=== PATIENT | female | born 1985 | race Caucasian/White ===

== ENCOUNTER 2024-05-14 17:47 | Emergency (ER) | payer OTHER, SELFPAY ==
[2024-05-14 18:51] VITALS: BP 141/100; PULSE 85; RESP 18; TEMP 36.7; O2SAT 98; BMI 29.4
--- NOTE | 2024-05-14 18:53 | ED_ITS ---
HPI - Headache General Chief Complaint: Headache Stated Complaint: Back of head pressure Time Seen by Provider: 05/14/24 22:55 Source: patient Mode of arrival: ambulatory Limitations: no limitations History of Present Illness ED Provider: Dr. Sachi Pablo HPI Narrative: Patient comes to the emergency room complaining of a headache for over 24 hours. Patient states that she has been taking Tylenol without any relief. Patient has history of migraines but usually they are 1 side of the head. Patient denies photophobia. Patient denies any neurological deficits. In triage, patient states that she had some swelling in the face around the eyes legs, patient states that it is all gone now without any intervention or medication. Patient states that she ran out of her blood pressure medications 3 days ago, states that she is having trouble getting in to see her primary care physician due to high demand Related Data Previous Rx's ?Medication ?Instructions ?Recorded hydrochlorothiazide 25 mg tablet 25 mg PO DAILY #90 tabs 05/14/24 ketorolac 10 mg tablet 10 mg PO Q8H PRN pain #10 tabs 05/14/24 losartan 25 mg tablet 25 mg PO DAILY #90 tabs 05/14/24 metoclopramide HCl 5 mg tablet 5 mg PO .T.i.d. PRN nausea and 05/14/24 (Reglan) vomiting #10 tabs Allergies Allergy/AdvReac Type Severity Reaction Status Date / Time No Known Allergies Allergy Verified 05/14/24 18:54 Review of Systems 2 Review of Systems: Constitutional : No Weight loss, No Fever, No Chills, No Night Sweats, No Fatigue, No Malaise ENT/Mouth : No Hearing loss, No Ear Pain, No Nasal Congestion, No Sinus Pain, No Hoarseness, No sore throat, No Rhinorrhea, No Swallowing Difficulty Eyes: No Eye Pain, No Swelling, No Redness, No Foreign Body, No Discharge, No Vision Changes Cardiovascular : No Chest Pain, No SOB, No Dyspnea on Exertion, No Orthopnea, No Edema, No Palpitations Respiratory : No Cough, No Sputum, No Wheezing, No Smoke Exposure, No Dyspnea Gastrointestinal : No Nausea, No Vomiting, No Diarrhea, No Constipation, No abdominal Pain, No Hematochezia, No Melena Genitourinary : no irregular bleeding, No Dysuria, No Urinary Frequency, No Hematuria, No Urinary Incontinence, No Urgency, No Flank Pain, No Urinary Flow Changes, No Hesitancy Musculoskeletal : No joint pain, No Myalgias, No Joint Swelling Skin : No Skin Lesions, No rash Neuro : No Weakness, No Numbness, No Paresthesias, No Loss of Consciousness, No Dizziness, complaining of a migraine Headache Psych : No Anxiety/Panic, No Depression, No SI/HI/AH/VH, No Social Issues, Heme/Lymph: No Bruising, No Bleeding,No Lymphadenopathy Endocrine : No Polyuria, No Polydipsia, No Temperature Intolerance [facility] Past Medical History Medical History (Updated 05/14/24 @ 23:28 by Sachi Pablo MD) Migraine Social History Social History Advance Directives: No Advance Directives Information Provided: No Physical Exam 2 Vital Signs: Vital Signs: Last Vital Signs Temp 98.0 F 05/14/24 18:51 Pulse 85 05/14/24 18:51 Resp 18 05/14/24 18:51 BP 141/100 H 05/14/24 18:51 Pulse Ox 98 05/14/24 18:51 O2 Del Method Room Air 05/14/24 18:51 BMI result Body Mass Index 29.4 Const: Other: Appearance: Alert. Oriented X3. No acute distress. Well-appearing, playing on her phone Eyes: Pupils equal, round and reactive to light. No photophobia ENT: Pharynx normal. Neck: Normal inspection. Neck supple. No lymph nodes noted. No crepitus CVS: Normal heart rate and rhythm. Pulses normal. Normal S1 and S2 Respiratory: No respiratory distress. Breath sounds normal. No Wheezing. No rales Abdomen: Soft and nontender. No rigidity. No distention. Skin: Skin warm and dry. Normal skin color. Normal skin turgor. Extremities: No lower extremity edema. No Lacerations. No Rash Neuro: Oriented X 3. No motor deficit. No sensory deficit. Moving all extremities. No slurred speech. CN 2 through 12 grossly intact Psych: calm, cooperative, normal affect Course Course Course Narrative: This is a Rapid Medical Examination (RME) performed by Latasha Walters PA-C in triage. Full HPI, ROS, assessment and treatment plan per primary provider in the Main ED. 38 yo Citizen Of [place] speaking female with history of HTN presents to the ER for evaluation of pressure in the back of her head since yesterday, worsening whole body swelling after being off of her BP meds for the last 3 days. No dizziness, vision changes, chest pain. endorses fatigue and generalized malaise. Plan: labs, UA. needs Rx for HCTZ & lisinopril Medical Decision Making Medical Decision Making [facility] Narrative: Neurologically, patient is intact -patient was given IM Toradol and p.o. Phenergan. -also, patient requested a refill on her medications for blood pressure. Patient states she takes hydrochlorothiazide 25 mg and losartan 25 mg. Patient states that 6 months ago she used to take lisinopril but due to cough she was switched to losartan -patient's physical exam is completely normal. Differential Diagnosis Differential Diagnoses: The differential diagnosis associated with the presentation includes (Tension headache, migraine headache) Lab Data 05/14/24 19:38 05/14/24 19:38 Labs: Lab Results 05/14/24 Range/Units 19:38 WBC 11.0 H (4.8-10.8) X10*3/uL RBC 4.16 L (4.20-5.50) X10*6/uL Hgb 12.4 (12.0-16.0) g/dl Hct 35.8 L (37.0-47.0) % MCV 86.1 (80.0-98.0) fL MCH 29.8 (27.0-33.0) pg MCHC 34.6 (31.0-35.0) g/dl RDW 12.9 (11.0-16.0) % Plt Count 340 (160-400) X10*3/uL MPV 11.1 (9.4-12.3) fL Immature Gran % (Auto) 0.6 H (0.0-0.4) % Neut % (Auto) 51.0 (45-73) % Lymph % (Auto) 34.6 (20-40) % [place] % (Auto) 7.7 (2-11) % Eos % (Auto) 5.1 H (0-4) % Baso % (Auto) 1.0 (0-2) % Lymph # (Auto) 3.8 (1.2-4.9) X10*3/uL [place] # (Auto) 0.8 (0.1-1.2) X10*3/uL Eos # (Auto) 0.6 H (0.0-0.4) X10*3/uL Baso # (Auto) 0.1 (0.0-0.2) X10*3/uL Abs Immat Gran (auto) 0.07 H (0.00-0.03) X10*3/uL Absolute Neuts (auto) 5.6 (2.0-8.3) x10*3/uL Absolute Nucleated RBC 0.000 (0.0-0.012) X10*3/uL Nucleated RBC % (auto) 0.0 (0.0-0.2) /100WBC Sodium 142 (135-145) mmol/L Potassium 3.1 L (3.3-5.1) mmol/L Chloride 106 (96-108) mmol/L Carbon Dioxide 28 (22-29) mmol/L Anion Gap 11 L (12-20) BUN 10 (9-16) mg/dL Creatinine 0.79 (0.5-1.4) mg/dL Estim Creat Clear Calc 91.2 Estimated GFR > 60 Random Glucose 113 (60-115) mg/dL Calcium 8.7 (8.4-10.2) mg/dL Magnesium 2.2 (1.6-2.6) mg/dL Total Bilirubin 0.2 (0.0-1.0) mg/dL Direct Bilirubin < 0.2 (0.0-0.5) mg/dL AST 22 (5-31) U/L ALT 22 (0-31) U/L Alkaline Phosphatase 75 (39-117) U/L B-Natriuretic Peptide 62 (<100) pg/mL Total Protein 7.1 (6.5-8.0) g/dL Albumin 4.0 (3.5-5.0) g/dL Urine Color Yellow Urine Appearance Clear Urine pH 6.5 (5.0-9.0) Ur Specific [place] 1.025 (1.005-1.025) Urine Protein Negative (Neg-Trace) mg/dL Urine Glucose (UA) Negative (Negative) mg/dL Urine Ketones Trace (Negative) mg/dL Urine Blood Negative (Negative) Urine Nitrite Negative (Negative) Ur Leukocyte Esterase Negative (Negative) COVID-19 (AMY) Negative (Negative) COVID-19 Clin Com See Note Discharge Plan Discharge Clinical Impression: Migraine Patient Disposition: Home, Self-Care Instructions: Migraine Headache (ED) Additional Instructions: Please follow-up with your primary care physician tomorrow. If you have any worsening or new symptoms, please return to the emergency room or call 911 Prescriptions: New ketorolac 10 mg tablet 10 mg PO Q8H PRN (Reason: pain) Qty: 10 0RF Rx Instructions: Do not take ibuprofen/naproxen or NSAIDs with this medication. Only Tylenol is okay metoclopramide HCl [Reglan] 5 mg tablet 5 mg PO .T.i.d. PRN (Reason: nausea and vomiting) Qty: 10 0RF Rx Instructions: Take together with Toradol hydrochlorothiazide 25 mg tablet 25 mg PO DAILY Qty: 90 0RF losartan 25 mg tablet 25 mg PO DAILY Qty: 90 0RF Print Language: Citizen [place]
--- NOTE | 2024-05-14 19:31 | MHC.EDTECH ---
Addendum entered by Anny Fraser 05/14/24 19:33: covid swab collected and sent to lab. Original Note: Patient brought into triage area,labs and urine obtained and sent to lab,patient brought back to waiting room,
[2024-05-14 19:43] LABS: MANUAL DIFF FLAG NO
[2024-05-14 19:46] LABS: Appearance Urine Clear; Basophils Absolute Auto 0.1 X10*3/uL (0.0-0.2); Color Urine Yellow; Eosinophils Absolute Auto 0.6 X10*3/uL (0.0-0.4); Eosinophils Percent Auto 5.1 % (0-4); Glucose Urine UA Negative (Negative); Hematocrit 35.8 % (37.0-47.0); Hemoglobin 12.4 g/dl (12.0-16.0); Imm Gran Abs Auto 0.07 X10*3/uL (0.00-0.03); Imm Gran Pct Auto 0.6 % (0.0-0.4); Leukocyte Esterase Urine Negative (Negative); Lymphocytes Absolute Auto 3.8 X10*3/uL (1.2-4.9); Lymphocytes Percent Auto 34.6 % (20-40); Mean Corpuscular HGB Conc 34.6 g/dl (31.0-35.0); Mean Corpuscular Hemoglobin 29.8 pg (27.0-33.0); Mean Corpuscular Volume 86.1 fL (80.0-98.0); Mean Platelet Volume 11.1 fL (9.4-12.3); Monocytes Absolute Auto 0.8 X10*3/uL (0.1-1.2); Monocytes Percent Auto 7.7 % (2-11); Neutrophils Absolute Auto 5.6 x10*3/uL (2.0-8.3); Nitrite Urine Negative (Negative); PH 6.5 (5.0-9.0); Platelet Count 340 X10*3/uL (160-400); Red Blood Count 4.16 X10*6/uL (4.20-5.50); Red Cell Distribution Width 12.9 % (11.0-16.0); Specific Gravity - Urine 1.025 (1.005-1.025); Urine Blood Negative (Negative); Urine Ketones Trace mg/dL (Negative); Urine Protein Negative (Neg-Trace)
[2024-05-14 20:01] LABS: COVID-19 Test Negative (Negative); IDNOW Serial# 152EDE1D
[2024-05-14 20:23] LABS: B Type Natriuretic Peptide 62 pg/mL (<100)
[2024-05-14 20:38] LABS: Alanine Aminotransferase 22 U/L (0-31); Alkaline Phosphatase 75 U/L (39-117); Anion Gap 11 (12-20); Aspartate Amino Transferase 22 U/L (5-31); Bilirubin Direct < 0.2 mg/dL (0.0-0.5); Bilirubin Total 0.2 mg/dL (0.0-1.0); Blood Urea Nitrogen 10 mg/dL (9-16); Calcium 8.7 mg/dL (8.4-10.2); Carbon Dioxide 28 mmol/L (22-29); Chloride 106 mmol/L (96-108); Creatinine Clr Calc Pharmacy 91.2; Estimated Glomerular Filt Rate > 60; Glucose Random 113 mg/dL (60-115); Magnesium 2.2 mg/dL (1.6-2.6); Potassium 3.1 mmol/L (3.3-5.1); Sodium 142 mmol/L (135-145); Total Protein 7.1 g/dL (6.5-8.0)
[2024-05-14] MEDS: Metoclopramide HCl 5 MG TABLET PO (23:33)
[2024-05-14] MEDS: Ketorolac Tromethamine 60 MG/2 ML VIAL IM (23:33)
[2024-05-14] MEDS: Acetaminophen 325 MG TABLET 650 MG PO (23:33)
[2024-05-14 23:40] VITALS: BP 141/100; PULSE 85; RESP 18; TEMP 36.7; O2SAT 98
== END 2024-05-14 23:42 | disposition home or self-care (01) ==
PROVIDERS: Physician Assistant; Emergency Provider Emergency Medicine
DX: G43.909 Migraine, unspecified, not intractable, without status migrainosus (principal); Z11.52 Encounter for screening for COVID-19; Z79.899 Other long term (current) drug therapy
CPT/HCPCS: 36415; 80048; 80076; 81003; 83735; 83880; 85025; 87635; 96372; 99284; J1885